=== PATIENT | male | born 1945 | race Caucasian/White ===

== ENCOUNTER 2017-07-17 08:17 | Emergency (ER) | payer MEDICARE, OTHER ==
[~2017-07-17] VITALS: Ht 172.7 cm; Wt 83.9 kg
--- OUTSIDE RECORDS SUMMARY | 2017-07-17 08:22 | External Medical Summary Rpt | CCD ---
Author Author [facility] Organization [employer] Address Unknown Phone Unavailable Purpose Continuity of Care Document - through 2016
--- OUTSIDE RECORDS SUMMARY | 2017-07-17 08:22 | External Medical Summary Rpt | CCD ---
Author Author , MAHENDRA LAROSE Address Unknown Phone [email or web address] Purpose Continuity of Care Document - through 2016
--- OUTSIDE RECORDS SUMMARY | 2017-07-17 08:22 | External Medical Summary Rpt | CCD ---
Author Author , MAHENDRA LAROSE Address Unknown Phone [email or web address] Purpose Continuity of Care Document - through 2016
--- OUTSIDE RECORDS SUMMARY | 2017-07-17 08:23 | External Medical Summary Rpt | CCD ---
Demographics Preferred Language Macedonian Marital Status Unknown Synagogue Affiliation Unknown Race Unknown Ethnic Group Unknown Author Author , LACHELLE LAROSE Address Unknown Phone Immunization Unable to retrieve immunization data due to connection failure with Immunization Registry. Please try again later.
--- OUTSIDE RECORDS SUMMARY | 2017-07-17 08:23 | External Medical Summary Rpt | CCD ---
Demographics Preferred Language Luxembourgish Marital Status Unknown Temple Affiliation Unknown Race Unknown Ethnic Group Unknown Author Author , LACHELLE LAROSE Address Unknown Phone Immunization Unable to retrieve immunization data due to connection failure with Immunization Registry. Please try again later.
[2017-07-17] MEDS ORDERED: MONTELUKAST SOD10 MG PO (08:58)
[2017-07-17] MEDS ORDERED: LOSARTAN POTASS1 TA1 PO (08:59)
[2017-07-17] MEDS ORDERED: FLONASE 50 MCG16 GM (08:59)
[2017-07-17] MEDS ORDERED: ZYRTEC-D TABLE1 EACH PO (08:59)
[2017-07-17] MEDS ORDERED: LOPRESSOR 25MG.25 MG PO (08:59)
[2017-07-17] MEDS ORDERED: AUGMENTIN 875-1 EACH PO (09:25)
--- NOTE | 2017-07-17 09:26 | Urgent Treatment Center Report ---
History of Present Issue Date/Time Seen by Provider 07/17/17 09 Visit Reason Pt arrived:Walked Presenting Problem:PT COMPLAINS OF H/A, SORE THROAT, EYE SENSITIVITY TO LIGHT. X 2 DAYS Location if Accident: Onset of symptoms date/time:/ or onset unknown for:MEDICAL HX UNKNOWN Have you (or family members/close friends) recently traveled outside the [place]? N If Yes, where/when: Have you had exposure to infectious disease within the past month? TB? Other? Specify: Patient state that he has been feeling ill since Monday State that he has been having sinus headache with pain and pressure around his eyes State that it has continued to get worse. State that he has taken Zyrtec D but not helped State that his drainage has changed colors and continued to get thicker. State that last night he began to have the cough and his throat got sore. State that bright light has been hurting his eyes and that is common when he gets a bad sinus infection ALLERGIES Coded Allergies: No Known Allergies (07/17/17) Home Medications Reported Medications Montelukast Sodium 10 MG PO DAILY #30 LOSARTAN/HYDROCHLOROTHIAZIDE (Losartan-Hctz 100-25 MG Tab) 1 TAB PO DAILY #30 Fluticasone Propionate (Flonase 50 Mcg Nasal [place]) 1 SPRAY NA BID #16 Cetirizine HCl/Pseudoephedrine (Zyrtec-D Tablet) 1 EACH PO PRN PRN ALLERGIES #24 Metoprolol Tartrate (Lopressor) 12.5 MG PO BID #30 History Medical History General CAD? No Angina: No AL: No Hypertension? Yes Hyperlipidemia? No CHF? No DVT? No PE? No COPD? No Asthma? No Anemia? No GERD? No Gastric ulcers? No GI Bleed? No Hernia? No Thyroid Problems? No Hypothyroidism? No CVA? No Seizures? No Diabetes? No Renal Insuffiency? No UTI? No Stones? No BPH? No GB Disease: No Nephritic Syndrome? No Asplenia? No Hepatitis? No Sickle Cell Disease? No Arthritis? No Migraines? No Cataracts? No Glaucoma? No MRSA? No HIV? No TB? No Anxiety? No Depression? No Cancer? No Site: N More? No Immunization HX DT/Tetanus 5-10 Years Ago Surgical Hx Previous Surgery?Y FINGER Social History Smoking Hx Smoker: Never Smoker Tobacco: No Alcohol Alcohol: No Review of Systems All Other Systems Reviewed and Negative Constitutional fever Eyes photophobia, denies blurred vision, denies drainage ENT nose discharge, nose congestion, throat pain. Respiratory cough, denies shortness of breath, denies wheezing Psychiatric/Neurological headache Physical Exam Vital Signs Vital Signs Date Time Temp Pulse Resp B/P Pulse O2 O2 Flow FiO2 Ox Delivery Rate 07/17 918 18 07/17 0855 98.9 90 18 121/77 96 General Appearance no apparent distress, fatigued, appears ill, pale in color wearing dark glasses Ear, Nose, Throat sinus pain/drainage, nasal congestion, Throat red, irritated drainage noted, tenderness noted frontal sinus complains of pressure feeling behind his eyes like that associated with sinus headache Respiratory Status Yes: trachea midline, chest symmetrical, non tender chest. No: respiratory distress. Lung Sounds bilateral: normal breath sounds, lungs clear. Cardiovascular normal exam, regular rate/rhythm Gastrointestinal normal exam, non tender Neurologic alert, normal exam, oriented x 3 Comments Complains of pressure behind eyes, describes it as like he has had before when he had a bad sinus infection, denies blurred vision, denies vision disturbances Medical Decision Making LABS/Meds/Orders Pt receiving controlled substance in ED? No Results/Orders Current Medication Orders Sig/Michael Start time Last Medication Dose Route Stop Time Status Admin Ketorolac 60 MG ONCE ONE 07/17 915 DC 07/17 Tromethamine IM 07/17 916 0918 Methylprednisolone 125 MG ONCE ONE 07/17 915 DC 07/17 Sodium Succinate IM 07/17 916 0918 Ketorolac 0 .STK-MED ONE 07/17 914 DC Tromethamine .ROUTE Methylprednisolone 0 .STK-MED ONE 07/17 914 DC Sodium Succinate .ROUTE Departure Departure Time of Disposition 922 Disposition DC Home or Self Care(routine) Clinical Impression Primary Impression: Sinusitis Qualifiers: Sinusitis location: unspecified location Chronicity: unspecified Qualified Code: J32.9 - Chronic sinusitis, unspecified Condition STABLE Referrals BETTIE BECKHAM (Family): 3 Days-Call Office If no imrovement in symptoms Patient Instructions DI for Sinus Headache, DI for Sinusitis, Sinus Headache, Sinusitis Additional Instructions Start antibiotic. Sinus infections may take 2-3 days to notice much improvement so be sure to use conservative measures as discussed for symptoms Flonase 2 spray in each nostril daily to help with nasal congestion, sinus an ear pressure/inflammation Lots of Fluids Sleep elevated Humidifer/vaporizer * Monitor Temp. Tylenol and/or Ibuprofen as needed. ER if fever is no less than 101 despite alternating Tylenol and Ibuprofen * Encourage fluids, water, Gatorade, powerade, pedialyte if /toddler/or child * Warm salt water gargles for throat irritation *Warm fluids *Sore throat lozenges *Sleep elevated *humidifier or vaporizer Lots of rest Increase fluids, water, Gatorade, powerade Discharge Counseling Counseled pt/family regarding diagnosis, medications/RX, home care, follow up needs Prescriptions Current Visit Scripts Amoxicillin/Potassium Clav (Augmentin 875-125 Tablet) 1 EACH PO BID #14 TAB Benzonatate (Tessalon Perle) 100 MG PO TID #15 SGL at 0931
[2017-07-17] MEDS ORDERED: TESSALON PERLE100 M1 PO (09:27)
[2017-07-17 09:34] VITALS: BP 121/77
== END 2017-07-17 09:34 | disposition home or self-care (01) ==
LOC: UTC 08:17
DX: J32.9 Chronic sinusitis, unspecified (principal); I10 Essential (primary) hypertension